=== PATIENT | female | born 1940 | race Caucasian/White ===

== ENCOUNTER 2017-03-06 07:57 | Day surgery (SDC) | payer OTHER, MEDICARE ==
--- NOTE | ~2017-03-06 | EGD ---
EGD REPORT [facility] [address] [address] NAME: HODA QUIROS : [birth year] STATUS : REG [facility]#: [id number] AGE: 76 ADM/REG DATE : 03/06/17 MR#: [id number] REPORT SERV DATE: 03/06/17 DICTATED BY: RASHAAD GAN. DATE: 03/06/17 REPORT STATUS : Draft [facility]: [facility] DATE: 03/06/17 Endoscopy Center Patient Name: Hoda Quiros Date of : 1940 Attending MD: RASHAAD GAN MD Procedure Date No Time: 03/06/2017 Procedure: Upper GI endoscopy Indications: Epigastric abdominal pain, Abdominal pain in the right upper quadrant. Patient Profile: Informed consent was obtained from the patient by me prior to the procedure. Risks, benefits, and alternatives were discussed including the risk of bleeding, perforation, infection, reaction to medicine, missed lesion, and cardiopulmonary complications. Referring MD: Joe Buenrostro Medicines: Monitored Anesthesia Care Complications: No immediate complications. Procedure: Pre-Anesthesia Assessment: - ASA Grade Assessment: III - A patient with severe systemic disease. After obtaining informed consent, the endoscope was passed under direct vision. Throughout the procedure, the patient's blood pressure, pulse, and oxygen saturations were monitored continuously. The GIF H190 [id number] was introduced through the mouth, with the intention of advancing to the duodenum. The scope was advanced to the gastric body before the procedure was aborted due to retained contents. Medications were given. The upper GI endoscopy was accomplished without difficulty. The patient tolerated the procedure well. Findings: The examined esophagus was normal. The esophagus and gastroesophageal junction were examined with white light. There was no visual evidence of Jackson's esophagus. A large amount of food (residue) was found in the gastric body. Impression: - Normal esophagus. - There is no endoscopic evidence of Jackson's esophagus. - A large amount of food (residue) in the stomach. Recommendation: - Patient has a contact number available for emergencies. The signs and symptoms of potential delayed complications were discussed with the patient. Return to normal activities tomorrow. Written discharge EGD REPORT [address] [address] NAME: HODA QUIROS : [birth year] STATUS : REG [facility] PAT#: [id number] AGE: 76 ADM/REG DATE : 03/06/17 MR#: [id number] REPORT SERV DATE: 03/06/17 DICTATED BY: RASHAAD GAN. DATE: 03/06/17 REPORT STATUS : Draft TRANSCRIBED BY: [employer] DATE: 03/06/17 instructions were provided to the patient. - Regular diet. - Take Nexium OTC daily. - R/S EGD Mem AA soon clear liquids day prior. Procedure Code(s): --- Professional --- 06021, 52, Esophagogastroduodenoscopy, flexible, transoral; diagnostic, including collection of specimen(s) by brushing or washing, when performed (separate procedure) Diagnosis Code(s): --- Professional --- R10.13, Epigastric pain R10.11, Right upper quadrant pain CPT copyright 2013 [employer]. All rights reserved. The codes documented in this report are preliminary and upon medical record coder review may be revised to meet current compliance requirements. RASHAAD GAN MD 03/06/2017 9:36 AM This report has been signed electronically. Number of Addenda: 0 Note Initiated On: 03/06/2017 7:32 AM Scope Withdrawal Time 0 hours 0 minutes 0 seconds [id number] [id number]
[~2017-03-06 07:57] MED LIST: CENTRUM PO; DURICEF PO; LEVOTHYROXIN50 MCG PO; LORT7 PO; MACROBID PO; NORCO1 TA2; PREM625 PO; SEPTRA; ULTRAM50 PO
[2017-03-07] MEDS ORDERED: L20 PO (11:05)
[2017-03-14] MEDS ORDERED: DIL2TAB PO (16:19)
[2017-04-24] MEDS ORDERED: MACROBID PO (10:32)
[2017-04-24] MEDS ORDERED: L10 PO (10:33)
[2017-04-24] MEDS ORDERED: DEPO ESTRADIOL IM (10:34)
[2017-04-24] MEDS ORDERED: LOM PO (10:35)
[2017-04-24] MEDS ORDERED: PREM625 PO (10:35)
[2017-04-24] MEDS ORDERED: TESTOSTERONE CYP IM (10:36)
[2017-04-24] MEDS ORDERED: LEVOTHYROXIN50 MCG PO (10:37)
[2017-04-24] MEDS ORDERED: L20 PO (10:37)
[2017-04-24] MEDS ORDERED: PROAIR HFA INH (10:38)
[2017-04-24] MEDS ORDERED: MELATONIN PO (10:38)
[2017-04-24] MEDS ORDERED: ADVIL PO (10:39)
[2017-04-24] MEDS ORDERED: BEN25 PO (10:39)
[2017-04-24] MEDS ORDERED: TUMS PO (10:40)
[2017-04-25] MEDS ORDERED: LEVAQUIN750 MG PO (14:39)
== END 2017-03-06 23:59 | disposition home health service (06) ==
LOC: DMU 07:57
PROVIDERS: Internal Medicine Gastroenterology
PROC: 0DJ08ZZ Inspection of Upper Intestinal Tract, Via Natural or Artificial Opening Endoscopic (ICD-10-PCS; principal; 2017-03-06 09:30)
DX: R10.13 Epigastric pain (principal); R10.11 Right upper quadrant pain; E03.9 Hypothyroidism, unspecified; D64.9 Anemia, unspecified; Z87.891 Personal history of nicotine dependence; Z98.890 Other specified postprocedural states; Z90.710 Acquired absence of both cervix and uterus

== ENCOUNTER 2017-03-08 08:51 | Day surgery (SDC) | payer OTHER, MEDICARE ==
--- NOTE | ~2017-03-08 | EGD ---
EGD REPORT [facility] [address] [place] [address] NAME: HOAD QUIROS : [birth year] STATUS : REG [facility]#: [id number] AGE: 76 ADM/REG DATE : 03/08/17 MR#: [id number] REPORT SERV DATE: 03/08/17 DICTATED BY: RASHAAD GAN. DATE: 03/08/17 REPORT STATUS : Draft [facility]ANSCRIBED [facility]: [facility] DATE: 03/08/17 Endoscopy Center Patient Name: Hoda Quiros Date of : 1940 Attending MD: RASHAAD GAN MD Procedure Date No Time: 03/08/2017 Procedure: Upper GI endoscopy Indications: Epigastric abdominal pain, Abdominal pain in the right upper quadrant; Omeprazole 20mg daily. Patient Profile: Informed consent was obtained from the patient by me prior to the procedure. Risks, benefits, and alternatives were discussed including the risk of bleeding, perforation, infection, reaction to medicine, missed lesion, and cardiopulmonary complications. Referring MD: Joe Buenrostro Medicines: Monitored Anesthesia Care Complications: No immediate complications. Procedure: Pre-Anesthesia Assessment: - ASA Grade Assessment: II - A patient with mild systemic disease. After obtaining informed consent, the endoscope was passed under direct vision. Throughout the procedure, the patient's blood pressure, pulse, and oxygen saturations were monitored continuously. The GIF H190 [id number] was introduced through the mouth, and advanced to the third part of duodenum. The endoscope was withdrawn with careful examination all mucosal surfaces including retroflexion stomach. The upper GI endoscopy was accomplished without difficulty. The upper GI endoscopy was accomplished without difficulty. The patient tolerated the procedure well. Findings: The 3rd part of the duodenum was normal. The first part of the duodenum and 2nd part of the duodenum were normal. Biopsies were taken with a cold forceps for histology. The entire examined stomach was normal. A 3 cm hiatus hernia was present. The examined esophagus was normal. The esophagus and gastroesophageal junction were examined with white light. There was no visual evidence of Jackson's esophagus. Impression: - Normal 3rd part of the duodenum. - Normal first part of the duodenum and 2nd part of the duodenum. Biopsied. EGD REPORT [address] [address] NAME: HODA QUIROS : [birth year] STATUS : REG [facility] PAT#: [id number] AGE: 76 ADM/REG DATE : 03/08/17 MR#: [id number] REPORT SERV DATE: 03/08/17 DICTATED BY: RASHAAD GAN DATE: 03/08/17 REPORT STATUS : Draft TRANSCRIBED BY: [employer] DATE: 03/08/17 - Normal stomach. - Hiatus hernia. - Normal esophagus. - There is no endoscopic evidence of Jackson's esophagus. Recommendation: - Patient has a contact number available for emergencies. The signs and symptoms of potential delayed complications were discussed with the patient. Return to normal activities tomorrow. Written discharge instructions were provided to the patient. - Regular diet. - Continue present medications. - Await pathology results. - Await HIDA scan results. - Schd 4hr GET early satiety, GERD. - Low fat diet; small frequent meals. Procedure Code(s): --- Professional --- 80095, Esophagogastroduodenoscopy, flexible, transoral; with biopsy, single or multiple Diagnosis Code(s): --- Professional --- K44.9, Diaphragmatic hernia without obstruction or gangrene R10.13, Epigastric pain R10.11, Right upper quadrant pain CPT copyright 2013 [employer]. All rights reserved. The codes documented in this report are preliminary and upon building construction supervisor review may be revised to meet current compliance requirements. RASHAAD GAN MD 03/08/2017 11:18 AM This report has been signed electronically. Number of Addenda: 0 Note Initiated On: 03/08/2017 10:52 AM Scope Withdrawal Time 0 hours 0 minutes 0 seconds [address] [place] [address]
[~2017-03-08 08:51] MED LIST changes: +L20 PO
[2017-03-08 12:06] LABS: BASOPHILS 0.7 %; BASOPHILS ABSOLUTE 0.06 10/3/uL (0.0-0.16); EOSINOPHILS 0.6 %; EOSINOPHILS ABSOLUTE 0.05 10/3/uL (0.0-0.53); HEMATOCRIT 38.4 % (36.0-48.0); HEMOGLOBIN 12.4 g/dL (12.0-16.0); IMMATURE GRANULOCYTES 0.4 %; IMMATURE GRANULOCYTES ABSOLUTE 0.03 10/3/uL (0.0-0.11); LYMPHOCYTES 28.1 %; LYMPHOCYTES ABSOLUTE 2.26 10/3/uL (0.67-4.30); MEAN CORPUS HGB CONC 32.3 g/dL (32.0-36.0); MEAN CORPUSCULAR HEMOGLOB 30.2 pg (26.0-34.0); MEAN CORPUSCULAR VOLUME 93.4 fL (80-100); MEAN PLATELET VOLUME 11.5 fL (9.2-13.0); MONOCYTES 10.9 %; MONOCYTES ABSOLUTE 0.88 10/3/uL (0.21-1.20); NEUTROPHILS 59.3 %; NEUTROPHILS ABSOLUTE 4.77 10/3/uL (2.02-8.40); RBC DISTRIBUTION WIDTH 15.1 % (12.0-16.0); RED CELL COUNT 4.11 10/6/uL (4.0-5.6); WHITE BLOOD CELLS 8.1 10/3/uL (4.5-10.5)
[2017-03-08 12:07] LABS: MANUAL DIFF NO %; PLATELET COUNT 148 10/3/uL (150-400)
[2017-03-14] MEDS ORDERED: DIL2TAB PO (16:19)
[2017-04-24] MEDS ORDERED: MACROBID PO (10:32)
[2017-04-24] MEDS ORDERED: L10 PO (10:33)
[2017-04-24] MEDS ORDERED: DEPO ESTRADIOL IM (10:34)
[2017-04-24] MEDS ORDERED: LOM PO (10:35)
[2017-04-24] MEDS ORDERED: PREM625 PO (10:35)
[2017-04-24] MEDS ORDERED: TESTOSTERONE CYP IM (10:36)
[2017-04-24] MEDS ORDERED: L20 PO (10:37)
[2017-04-24] MEDS ORDERED: LEVOTHYROXIN50 MCG PO (10:37)
[2017-04-24] MEDS ORDERED: MELATONIN PO (10:38)
[2017-04-24] MEDS ORDERED: PROAIR HFA INH (10:38)
[2017-04-24] MEDS ORDERED: BEN25 PO (10:39)
[2017-04-24] MEDS ORDERED: ADVIL PO (10:39)
[2017-04-24] MEDS ORDERED: TUMS PO (10:40)
[2017-04-25] MEDS ORDERED: LEVAQUIN750 MG PO (14:39)
== END 2017-03-08 23:59 | disposition home or self-care (01) ==
LOC: DMU 08:51
PROVIDERS: Internal Medicine Gastroenterology
PROC: 0DB98ZX Excision of Duodenum, Via Natural or Artificial Opening Endoscopic, Diagnostic (ICD-10-PCS; principal; 2017-03-08 10:00)
DX: K44.9 Diaphragmatic hernia without obstruction or gangrene (principal); G61.0 Guillain-Barre syndrome; G51.0 Bell's palsy; E03.9 Hypothyroidism, unspecified; K57.92 Diverticulitis of intestine, part unspecified, without perforation or abscess without bleeding; Z79.818 Long term (current) use of other agents affecting estrogen receptors and estrogen levels; Z87.891 Personal history of nicotine dependence; Z96.1 Presence of intraocular lens; Z98.41 Cataract extraction status, right eye; Z98.42 Cataract extraction status, left eye; Z90.49 Acquired absence of other specified parts of digestive tract; Z90.89 Acquired absence of other organs; Z90.710 Acquired absence of both cervix and uterus; Z98.82 Breast implant status; Z98.890 Other specified postprocedural states; Z79.899 Other long term (current) drug therapy
CPT/HCPCS: 82150; 83690; 85025; 88305